=== PATIENT | male | born 1970 | race Caucasian/White ===

== ENCOUNTER → 2017-05-07 14:01 | Outpatient (CLI) | payer BC ==
[2016-05-24 12:42] VITALS: BMI 29.5
[~2017-05-07 14:01] MED LIST: ASPIRIN81 MG PO; HEMOCYTE PLUS C1 CAP PO; HYDROCODONE-APA1 TAB PO; LOPRESSOR25 MG PO; OMEPRAZOLE40 MG PO
== END | disposition home or self-care (01) ==
LOC: D.US 14:01
DX: I65.23 Occlusion and stenosis of bilateral carotid arteries (principal)

== ENCOUNTER → 2018-07-02 16:07 | Outpatient (CLI) | payer BC ==
[2016-05-24 12:42] VITALS: BMI 29.5
== END | disposition home or self-care (01) ==
LOC: D.US 08:00
DX: I65.23 Occlusion and stenosis of bilateral carotid arteries (principal)

== ENCOUNTER → 2019-07-11 12:32 | Outpatient (CLI) | payer BC ==
[2016-05-24 12:42] VITALS: BMI 29.5
== END | disposition home or self-care (01) ==
LOC: D.US 07-02 11:00
PROVIDERS: ATTEND Internal Medicine Cardiovascular Disease
DX: I65.23 Occlusion and stenosis of bilateral carotid arteries (principal)

== ENCOUNTER → 2020-01-15 08:40 | Outpatient (CLI) | payer BC ==
[2016-05-24 12:42] VITALS: BMI 29.5
--- NOTE | 2020-01-17 11:36 | EC ---
PATIENT:ROBERTO SALINAS DATE OF SERVICE: 01/15/20 SEX: M MEDICAL RECORD: [id number] DATE OF : [birth year] LOCATION:[facility] AGE OF PATIENT: 49 ADMISSION DATE: 01/15/20 REFERRING PHYSICIAN: INTERPRETING PHYSICIAN: PASCUAL HART MD ECHOCARDIOGRAM REPORT ECHO CHARGES 4 ECHO COMPLETE Date: 01/15/20 CLINICAL DIAGNOSIS: CAD/MITRAL REGURG ECHOCARDIOGRAPHIC MEASUREMENTS (adult normal given) AC root (d.<3.7cm) 3.1 cm LV Septum d (<1.2 cm> 1.6 cm Valve Excursion 1.6 cm LV Septum (systole) 1.8 cm Left Atria (s.<4.0cm> 3.8 cm LVPW d(<1.2cm) 1.7 cm RV (d.<2.3cm) 4.6 cm LVPW (sytole) 2.0 cm LV diastole(<5.6CM) 3.9 cm MV E-F(>70mm/sec) cm LV systole 2.8 cm LVOT Diameter 1.8 cm MV exc.(>10mm) 1.0 cm Est.ejection fraction (50-75%) % DOPPLER: LVIT cm/sec A 52.0 cm/sec E 103.0 cm/sec LA cm/sec RVSP 36 mmHg LVOT 115 cm/sec AOP1/2T m/s Asc. Ao 144 cm/sec RVOT 52 cm/sec RA cm/sec PA 109 cm/sec AV Gradient Peak 8.33 mmHg AV Mean 4.29 mmHg AV Area 2.0 cm MV Gradient Peak 3.48 mmHg MV Mean 0.94 mmHg MV Area cm COMMENTS: Insurance Follow Up Rep: 2 SANDRO MEI Steam Pressure Chamber Operator: 3 Dr. Merida TAPE# PACS Pericardial Effusion N DATE OF SERVICE: Adequate 2D, color flow, spectral Doppler, M-mode. LVH is present. LV internal dimension is normal. Wall motion is normal. EF is greater than or equal to 55%. Aortic valve is tricuspid. No evidence of stenosis by Doppler interrogation. Left atrium is normal at 3.8 cm. Mitral valve shows no prolapse. Mild MR. Right-sided chambers are grossly normal. Mild TR. TRANSINT:[id number] Voice Confirmation ID: [id number] DOCUMENT ID: [id number] ECHOCARDIOGRAM REPORT [id number] ROBERTO SALINAS GREGORY A MD at 1136 CC: [id number] DICTATION DATE: 01/15/20 1523 PASSENGER REPRESENTATIVE: 01/15/20 2308 DEP CLI 01/15/20 [place] [id number] [place] [id number]
== END | disposition home or self-care (01) ==
LOC: D.HCCECHO 08:40
PROVIDERS: ATTEND Internal Medicine Interventional Cardiology
DX: I25.10 Atherosclerotic heart disease of native coronary artery without angina pectoris (principal)

== ENCOUNTER → 2020-08-30 10:52 | Outpatient (CLI) | payer BC ==
[2016-05-24 12:42] VITALS: BMI 29.5
== END | disposition home or self-care (01) ==
LOC: D.US 10:52
PROVIDERS: ATTEND Internal Medicine Cardiovascular Disease
DX: I65.23 Occlusion and stenosis of bilateral carotid arteries (principal)

== ENCOUNTER → 2021-01-31 12:47 | Outpatient (CLI) | payer BC ==
[2016-05-24 12:42] VITALS: BMI 29.5
--- NOTE | 2021-02-01 13:52 | EC ---
PATIENT:ROBERTO SALINAS DATE OF SERVICE: 01/31/21 SEX: M MEDICAL RECORD: [id number] DATE OF : [birth year] LOCATION:[facility] AGE OF PATIENT: 50 ADMISSION DATE: 01/31/21 REFERRING PHYSICIAN: INTERPRETING PHYSICIAN: PASCUAL HART MD ECHOCARDIOGRAM REPORT ECHO CHARGES 4 ECHO COMPLETE Date: 01/31/21 CLINICAL DIAGNOSIS: HTN/ASSESS EF AND MITRAL REGURG ECHOCARDIOGRAPHIC MEASUREMENTS (adult normal given) AC root (d.<3.7cm) 2.9 cm LV Septum d (<1.2 cm> 1.2 cm Valve Excursion 1.6 cm LV Septum (systole) 1.4 cm Left Atria (s.<4.0cm> 3.9 cm LVPW d(<1.2cm) 1.4 cm RV (d.<2.3cm) 4.6 cm LVPW (sytole) 1.7 cm LV diastole(<5.6CM) 5.3 cm MV E-F(>70mm/sec) cm LV systole 3.7 cm LVOT Diameter 1.8 cm MV exc.(>10mm) 2.0 cm Est.ejection fraction (50-75%) % DOPPLER: LVIT cm/sec A 58.0 cm/sec E 67.0 cm/sec LA cm/sec RVSP 29 mmHg LVOT 88 cm/sec AOP1/2T m/s Asc. Ao 131 cm/sec RVOT 78 cm/sec RA cm/sec PA 155 cm/sec AV Gradient Peak 6.81 mmHg AV Mean 3.61 mmHg AV Area 1.7 cm MV Gradient Peak 3.05 mmHg MV Mean 1.02 mmHg MV Area cm COMMENTS: Union Laborer: 2 SANDRO MEI Route Cdl Driver: 3 Dr. Merida TAPE# PACS Pericardial Effusion N DATE OF SERVICE: Adequate 2D, color-flow imaging, spectral Doppler, and M-Mode FINDINGS: Mild LVH. LV internal dimension is normal. Wall motion is normal. EF is greater than or equal to 55%. Aortic valve is tricuspid. No evidence of stenosis by Doppler interrogation. Left atrium is normal at 3.9 cm. Mitral valve shows no prolapse. Trace MR. Right side is grossly normal. Mild TR. TRANSINT:[id number] Voice Confirmation ID: [id number] DOCUMENT ID: [id number] ECHOCARDIOGRAM REPORT [id number] ROBERTO SALINAS GREGORY A MD at 1352 CC: [id number] DICTATION DATE: 02/01/21809 [employer] VICE PRESIDENT: 02/01/21 1337 DEP CLI 01/31/21 [place] [id number] [place] [id number]
== END | disposition home or self-care (01) ==
LOC: D.HCCECHO 12:47
PROVIDERS: ATTEND Internal Medicine Interventional Cardiology
DX: I25.10 Atherosclerotic heart disease of native coronary artery without angina pectoris (principal)